=== PATIENT | female | born 1980 | race Caucasian/White ===

== ENCOUNTER → 2023-05-13 16:27 | Outpatient (BNVA) | payer SELFPAY | PROVIDERS: Family Provider Nurse Practitioner Family; PCP Nurse Practitioner Family; Visit Provider Emergency Medicine | DX: M79.641 Pain in right hand (principal); S60.221A Contusion of right hand, initial encounter; M54.6 Pain in thoracic spine; W19.XXXA Unspecified fall, initial encounter | CPT/HCPCS: 73130 ==